=== PATIENT | male | born 1980 | race Caucasian/White ===

== ENCOUNTER 2018-11-10 07:09 | Day surgery (SDC) | payer MEDICAID ==
[2018-11-10] MEDS ORDERED: LACTATED RINGERS 1,000 ML IV SCH (07:30)
[2018-11-10] MEDS ORDERED: IBUP-2271 PO (08:10)
[2018-11-10] MEDS ORDERED: SKIN ADHESIVE 0.7 GM EA TOP ONE (08:16)
[2018-11-10] MEDS ORDERED: BUPIVACAINE HCL 0.5% (5MG/ML) 50ML ONE (08:16)
[2018-11-10] MEDS ORDERED: FENTANYL CITRATE/PF 50MCG/ML 2ML VIAL ONE (08:44)
[2018-11-10] MEDS ORDERED: MIDAZOLAM HCL 2 MG/2 ML VIAL ONE (08:45)
[2018-11-10] MEDS ORDERED: PROPOFOL 200MG/20ML VIAL IV ONE (08:45)
[2018-11-10] MEDS ORDERED: SUCCINYLCHOLINE CHLORIDE 200MG/10ML IV ONE (08:50)
[2018-11-10] MEDS ORDERED: ROCURONIUM BROMIDE 10MG/ML VIAL 5ML IV ONE (08:50)
[2018-11-10] MEDS ORDERED: GLYCOPYRROLATE 0.2 MG/ML 2ML VIAL ONE ×2 (08:55→10:08)
[2018-11-10] MEDS ORDERED: CEFAZOLIN SODIUM 1000MG/VIAL ONE (08:58)
[2018-11-10] MEDS ORDERED: SODIUM CHLORIDE 0.9% 10ML VIAL ONE (08:58)
[2018-11-10] MEDS ORDERED: ONDANSETRON HCL 4MG/2ML INJ ONE (09:10)
[2018-11-10] MEDS ORDERED: METOCLOPRAMIDE HCL 10MG/2ML VIAL ONE (09:10)
[2018-11-10] MEDS ORDERED: DEXAMETHASONE 4MG/ML 1ML VIAL ONE (09:10)
[2018-11-10] MEDS ORDERED: NEOSTIGMINE METHYLSULFATE 1MG/ML 10 ML VIAL ONE (10:07)
[2018-11-10] MEDS: HYDROMORPHONE HCL/PF 2MG/ML CPJ IV PRN ×2 (10:47→11:32)
[2018-11-10 11:32] VITALS: BP 123/92
== END 2018-11-10 12:47 | disposition home or self-care (01) ==
LOC: OR 07:09
PROVIDERS: ATTEND Surgery
DX: K40.90 Unilateral inguinal hernia, without obstruction or gangrene, not specified as recurrent (principal); Z79.899 Other long term (current) drug therapy; Z72.89 Other problems related to lifestyle
CPT/HCPCS: 49505; 88302; C1781; J0330; J0690; J1100; J1170; J2250; J2405; J2704; J2710; J2765; J3010; J3490